=== PATIENT | male | born 1970 | race Caucasian/White ===

== ENCOUNTER 2018-05-05 19:38 | Emergency (ER) | payer MEDICAID, OTHER ==
[~2018-05-05] VITALS: Ht 190.5 cm; Wt 77.0 kg
[~2018-05-05 19:38] MED LIST: ALBU8.5H8 IH
[2018-05-05 19:40] VITALS: BP 148/76
[2018-05-05] MEDS ORDERED: IBUP-1985 PO (20:52)
== END 2018-05-05 21:02 | disposition home or self-care (01) ==
LOC: ER 19:39
DX: S80.11XA Contusion of right lower leg, initial encounter (principal); G89.29 Other chronic pain; Z88.0 Allergy status to penicillin; W22.8XXA Striking against or struck by other objects, initial encounter; Y93.64 Activity, baseball; Y92.89 Other specified places as the place of occurrence of the external cause; Y99.8 Other external cause status
CPT/HCPCS: 73590; 99284

== ENCOUNTER 2018-08-29 08:45 | Emergency (ER) | payer MEDICAID, OTHER ==
[~2018-08-29] VITALS: Ht 91.4 cm; Wt 86.8 kg
[~2018-08-29 08:45] MED LIST changes: +IBUP-1985 PO
[2018-08-29 08:49] VITALS: BP 140/78
--- NOTE | 2018-08-29 10:58 | NUR ---
awaiting to be seen by ed md.
== END 2018-08-29 11:34 | disposition home or self-care (01) ==
LOC: ER 08:46
DX: M25.512 Pain in left shoulder (principal); M25.521 Pain in right elbow; G89.29 Other chronic pain; Z88.0 Allergy status to penicillin; Z79.899 Other long term (current) drug therapy
CPT/HCPCS: 73030; 73080; 99284

== ENCOUNTER 2019-02-14 18:39 | Emergency (ER) | payer MEDICAID ==
[~2019-02-14] VITALS: Ht 190.5 cm; Wt 88.6 kg
[2019-02-14] MEDS ORDERED: morphine 4 MG/ML inj SYRINge IM ONE (19:00)
[2019-02-14] MEDS ORDERED: normal saline 1000ML IV soln IVB ONE (20:00)
[2019-02-14] MEDS ORDERED: propofol 10mg/ml 20ml vial IV ONE (20:00)
[2019-02-14] MEDS ORDERED: morphine 4 MG/ML inj SYRINge IV ONE (20:40)
[2019-02-14] MEDS ORDERED: ondansetron/PF 4mg/2ml inj IV ONE (20:40)
[2019-02-14 21:19] VITALS: BP 134/79
== END 2019-02-14 21:23 | disposition home or self-care (01) ==
LOC: ER 18:40
DX: S43.084A Other dislocation of right shoulder joint, initial encounter (principal); G89.29 Other chronic pain; Z88.0 Allergy status to penicillin; Z79.899 Other long term (current) drug therapy; X58.XXXA Exposure to other specified factors, initial encounter; Y93.89 Activity, other specified; Y92.89 Other specified places as the place of occurrence of the external cause; Y99.8 Other external cause status
CPT/HCPCS: 23650; 73020; 73030; 93005; 96372; 99152; 99285; J2270; J2704; J7030

== ENCOUNTER 2020-03-16 11:49 | Emergency (ER) | payer MEDICAID ==
[~2020-03-16] VITALS: Ht 190.5 cm; Wt 89.0 kg
[2020-03-16 12:03] VITALS: BP 129/80
--- NOTE | 2020-03-16 14:19 | NUR ---
NATALIA Mcrae is with the patient.
--- NOTE | 2020-03-16 14:39 | NUR ---
Bilateral ear lavage completed. No cerumen returned from the left ear but small pieces of dried cerumen returned from the right ear. Pt reported his hearing has significantly improved in the right ear. Pt reported a few minutes of dizziness but that it is resolved at this time.
== END 2020-03-16 15:09 | disposition home or self-care (01) ==
LOC: ER 11:49
DX: H61.21 Impacted cerumen, right ear (principal); G89.29 Other chronic pain; Z88.0 Allergy status to penicillin; Z79.899 Other long term (current) drug therapy
CPT/HCPCS: 69209; 99282